=== PATIENT | female | born 1975 ===

== ENCOUNTER 2018-05-21 10:35 | Emergency (ER) | payer MEDICAID ==
[2018-05-21 10:35] VITALS: BMI 38.2
[2018-05-21 10:40] VITALS: RESP 20
--- NOTE | 2018-05-21 11:57 | C.PDOC ---
Time Seen by Provider: 05/21/18 11:31 Chief Complaint (Nursing): Dental Pain Past Medical History Vital Signs: Last Vital Signs Temp 98.8 F 05/21/18 10:39 Pulse 87 05/21/18 10:39 Resp 20 05/21/18 10:39 BP 146/79 05/21/18 10:39 Pulse Ox 96 05/21/18 10:39 - [facility] BILAT TUBAL DIVISION NEC (06/03/14) LOW CERVICAL (06/03/14) - Social History Hx Alcohol Use: No Hx Substance Use: No - Immunization History Hx Tetanus Toxoid Vaccination: No Hx Influenza Vaccination: No Hx Pneumococcal Vaccination: No ED Course And Treatment O2 Sat by Pulse Oximetry: 96 Disposition - Disposition Disposition: HOME/ ROUTINE Disposition Time: 11:55 Condition: STABLE Additional Instructions: follow up with dentist tomorrow call to make an appointment take medication as needed for pain return to ER if symptoms worsens or progress Prescriptions: Acetaminophen/Codeine [Tylenol/Codeine 300 MG/30 MG] 1 tab PO Q6H PRN #10 tab PRN Reason: Pain, Severe (8-10) Amoxicillin [Amoxil 500 mg Cap] 875 mg PO BID #20 cap Naproxen [Naprosyn] 500 mg PO BID PRN #16 tab PRN Reason: Pain, Moderate (4-7) Instructions: Dental Pain (DC) Forms: [facility] (Estonian), General Discharge Instructions - Clinical Impression Clinical Impression: Dental caries
--- NOTE | 2018-05-21 11:59 | C.PDOC ---
History Of Present Illness 42 year old female presents to the emergency department with toothache for the last 2 days at tooth number 17. Patient denies taking anything for the pain, and she also denies trauma and injury. Patient describes the pain as throbbing. Time Seen by Provider: 05/21/18 11:31 Chief Complaint (Nursing): Dental Pain History Per: Patient History/Exam Limitations: no limitations Onset/Duration Of Symptoms: Days (2) Current Symptoms Are (Timing): Still Present Quality: Positive for: "Pain", Other (throbbing) Past Medical History Reviewed: Historical Data, Nursing Documentation, Vital Signs Vital Signs: Last Vital Signs Temp 98.8 F 05/21/18 10:39 Pulse 87 05/21/18 10:39 Resp 20 05/21/18 10:39 BP 146/79 05/21/18 10:39 Pulse Ox 96 05/21/18 10:39 - Medical History PMH: No Chronic Diseases Surgical History: No Surg Hx - [facility] BILAT TUBAL DIVISION NEC (06/03/14) LOW CERVICAL (06/03/14) Family History: States: No Known Family Hx - Social History Hx Alcohol Use: No Hx Substance Use: No - Immunization History Hx Tetanus Toxoid Vaccination: No Hx Influenza Vaccination: No Hx Pneumococcal Vaccination: No Review Of Systems Except As Marked, All Systems Reviewed And Found Negative. ENT: Positive for: Other (tooth pain) Physical Exam - Physical Exam Appears: Non-toxic, No Acute Distress Skin: Normal Color, Warm, Dry Head: Atraumatic, Normacephalic Eye(s): bilateral: Normal Inspection, PERRL, EOMI Nose: Normal Oral Mucosa: Moist Tongue: Normal Appearing Lips: Normal Appearing Teeth: Other (impacted wisdom tooth #17) Gingiva: Swelling (minimal), No Abscess Neck: Normal, Supple Chest: Symmetrical, No Tenderness Extremity: Normal ROM Neurological/Psych: Oriented x3, Normal Speech, Normal Cognition ED Course And Treatment O2 Sat by Pulse Oximetry: 96 (RA) Pulse Ox Interpretation: Normal Medical Decision Making Medical Decision Making: Plan: Amoxicillin 500mg PO Motrin 600mg PO Ultram 50mg PO Disposition - Disposition Disposition: HOME/ ROUTINE Disposition Time: 12:10 Condition: STABLE Additional Instructions: follow up with dentist tomorrow call to make an appointment take medication as needed for pain return to ER if symptoms worsens or progress Prescriptions: Acetaminophen/Codeine [Tylenol/Codeine 300 MG/30 MG] 1 tab PO Q6H PRN #10 tab PRN Reason: Pain, Severe (8-10) Amoxicillin [Amoxil 500 mg Cap] 875 mg PO BID #20 cap Naproxen [Naprosyn] 500 mg PO BID PRN #16 tab PRN Reason: Pain, Moderate (4-7) Instructions: Dental Pain (DC) Forms: General Discharge Instructions, [facility] (Ukrainian) - Clinical Impression Clinical Impression: Dental caries - Scribe Statement The provider has reviewed the documentation as recorded by the Scribe (Domenic Hidalgo) Provider Attestation: All medical record entries made by the Scribe were at my direction and personally dictated by me. I have reviewed the chart and agree that the record accurately reflects my personal performance of the history, physical exam, medical decision making, and the department course for this patient. I have also personally directed, reviewed, and agree with the discharge instructions and disposition.
[2018-05-21 12:04] VITALS: BP 145/84; PULSE 79; TEMP 98.6
[2018-05-21 14:11] VITALS: O2SAT 96
== END 2018-05-21 12:14 | disposition home or self-care (01) ==
LOC: C.ER 10:35
DX: K02.9 Dental caries, unspecified (principal)